=== PATIENT | female | born 1990 | race Caucasian/White ===

== ENCOUNTER 2016-07-15 12:15 | Emergency (ER) | payer OTHER ==
[~2016-07-15] VITALS: Ht 165.1 cm; Wt 60.0 kg
[~2016-07-15 12:15] MED LIST: FOLI1TAB PO; LEVO100T60 PO; METH2.5 PO; PRED20 PO
[2016-07-15 12:16] VITALS: BP 126/78; PULSE 78; RESP 14; TEMP 98.1; O2SAT 99
--- NOTE | 2016-07-15 12:50 | PD ---
HPI Chief Complaint: Pain: Acute or Chronic Time Seen by Provider: 12:48 Travel History International Travel<30 days: No Contact w/Intl Traveler<30days: No Traveled to known affect area: No History of Present Illness HPI Patient comes in complaining of left foot pain that began shortly prior to arrival. Patient states she went to stand up when she felt a sharp stabbing pain in her left foot that radiates proximally. Patient denies any known direct trauma, numbness or tingling anywhere, or doing anything for this prior to coming to the emergency department. Patient states she does have rheumatoid arthritis has been steroids for approximately 13 years. [facility] Past Medical History Arthritis: Yes (RA, STILL'S DISEASE) Autoimmune Disease: Yes (JRA) Blood Disorders: No Anxiety: No Depression: No Cardiovascular Problems: No Chest Pain: Yes Diminished Hearing: No Genitourinary: No Musculoskeletal: Yes Neurologic: No Psychiatric: No Respiratory: No Thyroid Disease: Yes (GRAVE'S) ?: Not LMP: 06/2016 : 0 Past Surgical History Abdominal Surgery: No Cardiac Surgery: No Ear Surgery: No Endocrine Surgery: Yes (THYROID RADIATED) Eye Surgery: No Genitourinary Surgery: No Gynecologic Surgery: No Neurologic Surgery: No Oral Surgery: No Thoracic Surgery: No Social History Alcohol Use: No Tobacco Use: No Substance Use: No Allergies-Medications (Allergen,Severity, Reaction): Coded Allergies: No Known Allergies (Unverified , 07/15/16) Reported Meds & Prescriptions Reported Meds & Active Scripts Active Reported Rheumatrex (Methotrexate) 2.5 Mg Tab 0 PO UNKNOWN DOSE Deltasone (Prednisone) 20 Mg Tab 20 Mg PO DAILY Folate (Folic Acid) 1 Mg Tab 1 Mg PO DAILY Levoxyl (Levothyroxine Sodium) 100 Mcg Tab 188 Mcg PO DAILY Review of Systems Except as stated in HPI: all other systems reviewed are Neg Physical Exam Narrative GENERAL: Well-developed, well nourished, in no acute distress, and non-ill appearing. SKIN: Warm and dry. HEAD: Atraumatic. Normocephalic. EYES: Pupils equal and round. EOMI. No scleral icterus. No injection or drainage. ENT: No nasal bleeding or discharge. Mucous membranes pink and moist. NECK: Trachea midline. Supple. No nuclear rigidity. CARDIOVASCULAR: Dorsal pulses 2+ and intact and equal bilaterally. Capillary refill less than 2 seconds. RESPIRATORY: No accessory muscle use. No respiratory distress. MUSCULOSKELETAL: No obvious deformities. No clubbing. No cyanosis. No edema. Full range of motion. Ankle: Neagative anterior draw and Gonzalez test. Negative Nayan's sign. No laxity noted with passive inversion and eversion of BL ankles. Negative squeeze test. Pulses equal BL distal to injury. Capillary refill less than 2 seconds distal to injury and equal BL. Sensation equal BL 1st web space. FROM of toes distal to injury and equal BL. NV intact distal to injury and equal BL. Dorsal pulses equal BL. Patient reports tenderness to palpation over the fourth and fifth metatarsal left lower extremity on the dorsal aspect. NEUROLOGICAL: Awake and alert. No obvious cranial nerve deficits. Motor grossly within normal limits. Normal speech. PSYCHIATRIC: Appropriate mood and affect; insight and judgment normal. Data Data Last Documented VS Vital Signs Date Time Temp Pulse Resp B/P Pulse Ox O2 Delivery O2 Flow Rate FiO2 07/15/16 12:16 98.1 78 14 126/78 99 Orders Foot, Complete (Hir1nit) (07/15/16 ) Ice/Cold Pack (07/15/16 12:40) Splint Or Brace Apply/Monitor (07/15/16 13:55) MDM Medical Decision Making Medical Screen Exam Complete: Yes Emergency Medical Condition: Yes Differential Diagnosis Fracture, sprain, contusion, other Narrative Course There is no clinical evidence for fracture. There is no clinical evidence to suspect bony injury by exam. Radiographic examination revealed no fracture seen at this time. No obvious ligamental injury or internal derangement is noted at this time. The distal extremity appears neurovascularly intact, without evidence of neurovascular injury nor compartment syndrome. Tendon exam also was intact. Patient refused postop shoe and crutches. The patient was discharged and given warnings for vascular compromise. The patient is to follow up with plan manager. The patient agrees with plan. Patient in no obvious distress upon re-evaluation. All pertinent Radiology result(s), including extensive arthritis, discussed with patient/family. Any questions/concerns in reference to patient diagnosis/condition discussed and clarified prior to patient's discharge. Reinforced sheer importance of close follow up with patient's primary physician or primary care clinic and/or plan manager. Instructed patient to return to ED immediately, if symptoms return/ worsen. Pt showed understanding of above instructions. Further instructions and recommendations were detailed in discharge paperwork. Pt left without difficulty out of ED at discharge. Diagnosis Primary Impression: Left foot pain Referrals: Lia Reza DPM Patient Instructions: Crutch Instructions (ED), Foot Sprain (ED), General Instructions, Splint Care (ED) Additional Instructions: Follow-up with your primary care physician and/or plan manager in one to 3 days for reevaluation. Use [id number] Tylenol as needed for pain. Follow instructions on the packaging. Return to the emergency department if symptoms get worse. Disposition: 01 DISCHARGE HOME Condition: Stable Dillan Jenkins Jul 15, 2016 12:50
--- NOTE | 2016-07-15 13:48 | RADRPT ---
EXAM DATE/TIME: 07/15/2016 13:04 [facility] COMPARISON: No previous studies available for comparison. INDICATIONS : Left foot pain no known injury pain started at when getting up from sitting at a desk MEDICAL HISTORY : None. SURGICAL HISTORY : None. ENCOUNTER: Initial ACUITY: 1 day PAIN SCORE: 6/10 LOCATION: Left Foot. FINDINGS: Three views of the left foot demonstrate no fracture or dislocation. The Lisfranc joint appears intac t. There is joint space narrowing and subchondral cystic change at the talonavicular joint. No soft t issue abnormality or radiopaque foreign body is identified. CONCLUSION: No acute left foot abnormality is identified. However, there is advanced degenerative change at the t alonavicular joint much greater than typically seen in a patient of this age. Yassine Dominguez MD on July 15, 2016 at 13:45 Board Certified Radiologist. This report was verified electronically.
== END 2016-07-15 13:32 | disposition home or self-care (01) ==
LOC: NEPB 12:15
DX: M79.672 Pain in left foot (principal); E07.9 Disorder of thyroid, unspecified; Z87.39 Personal history of other diseases of the musculoskeletal system and connective tissue; Z86.2 Personal history of diseases of the blood and blood-forming organs and certain disorders involving the immune mechanism
CPT/HCPCS: 73630; 99283; E0113; L3260